=== PATIENT | male | born 1965 | race Hispanic/Latino ===

== ENCOUNTER 2018-02-24 20:17 | Emergency (ER) | payer SELFPAY ==
[2018-02-24 20:24] VITALS: BP 139/99
--- NOTE | 2018-02-24 20:57 | EDM.PDOC ---
ED HPI GENERAL MEDICAL PROBLEM - General Chief Complaint: ENT Problem Stated Complaint: POSSIBLE INFECTION EYES Time Seen by Provider: 02/24/18 20:46 - History of Present Illness INITIAL COMMENTS - FREE TEXT/NARRATIVE: HISTORY AND PHYSICAL: History of present illness: The patient is a 52-year-old male who presents with a one-week history of itchy bilateral eyes left greater than right and I'm adding a night drainage that started yesterday morning. 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 He has no systemic complaints of fever chills nausea vomiting chest pain shortness of breath runny nose or sore throat. He has used [id number] eye lubricant. Patient denies visual blurriness but has pain because of the itchiness of his eyes and he doesn't feel like his vision has been compromised. He has no foreign body sensation in the eyes bilaterally. He does not wear glasses or contact lenses Review of systems: As per history of present illness and below otherwise all systems reviewed and negative. Past medical history: As per history of present illness and as reviewed below otherwise noncontributory. Surgical history: As per history of present illness and as reviewed below otherwise noncontributory. Social history: No reported history of drug or alcohol abuse. Family history: As per history of present illness and as reviewed below otherwise noncontributory. Physical exam: General: Well-developed well-nourished mildly overweight man is nontoxic and vital signs are noted by me HEENT: Atraumatic, normocephalic, pupils reactive, EOMs are intact, sclera are injected bilaterally left greater than light, negative for conjunctival pallor or scleral icterus, mucous membranes moist, throat clear, neck supple, nontender , trachea midline. Conjunctiva bilaterally is erythematous left greater than right Lungs: Clear to auscultation, breath sounds equal bilaterally, chest nontender. Heart: S1S2, regular and rhythm no overt murmurs Abdomen: Soft, nondistended, nontender. N.ABS Genitourinary: Deferred. Rectal: Deferred. Extremities: Atraumatic, negative for cords or calf pain. Neurovascular unremarkable. Neuro: Awake, alert, oriented. Cranial nerves II through XII unremarkable. Cerebellum unremarkable. Motor and sensory unremarkable throughout. Exam nonfocal. Diagnostics: Visual acuity Therapeutics: [] Impression: Bilateral conjunctivitis/left greater than right, rule out environmental allergies Definitive disposition and diagnosis as appropriate pending reevaluation and review of above. - Related Data Allergies Allergy/AdvReac Type Severity Reaction Status Date / Time No Known Allergies Allergy Verified 02/24/18 20:26 Home Meds: Home Meds . [No Known Home Meds] 06/25/14 [History] Past Medical History - Past Health History Medical/Surgical History: Denies Medical/Surgical History HEENT History: Reports: None Cardiovascular History: Reports: None Respiratory History: Reports: None Gastrointestinal History: Reports: None Genitourinary History: Reports: None Musculoskeletal History: Reports: None Neurological History: Reports: None Psychiatric History: Reports: None Endocrine/Metabolic History: Reports: None Hematologic History: Reports: None Immunologic History: Reports: None Oncologic (Cancer) History: Reports: None Dermatologic History: Reports: None - Infectious Disease History Infectious Disease History: Reports: None - Past Surgical History Head Surgeries/Procedures: Reports: None Male Surgical History: Reports: None Social & Family History - Tobacco Use Smoking Status *Q: Never Smoker Second Hand Smoke Exposure: No - Caffeine Use Caffeine Use: Reports: None - Recreational Drug Use Recreational Drug Use: No ED ROS GENERAL - Review of Systems Review Of Systems: ROS reveals no pertinent complaints other than HPI. ED EXAM, GENERAL - Physical Exam Exam: See Below (see dictation) Course - Vital Signs Last Recorded V/S: Last Vital Signs Temp 36.4 C 02/24/18 20:23 Pulse 89 02/24/18 20:23 Resp 20 02/24/18 20:23 BP 139/99 H 02/24/18 20:23 Pulse Ox 94 L 02/24/18 20:23 - Orders/Labs/Meds Orders: Active Orders 24 hr Category Date Time Status Communication Order [RC] STAT Care 02/24/18 20:52 Ordered Departure - Departure Time of Disposition: 20:55 Disposition: Home, Self-Care 01 Condition: Good Clinical Impression: Eye irritation Conjunctivitis Qualifiers: Conjunctivitis type: unspecified Laterality: bilateral Qualified Code(s): H10.9 - Unspecified conjunctivitis - Discharge Information Referrals: PCP,None [Primary Care Provider] - Additional Instructions: The following information is given to patients seen in the emergency department who are being discharged to home. This information is to outline your options for follow-up care. We provide all patients seen in our emergency department with a follow-up referral. The need for follow-up, as well as the timing and circumstances, are variable depending upon the specifics of your emergency department visit. If you don't have a primary care physician on staff, we will provide you with a referral. We always advise you to contact your personal physician following an emergency department visit to inform them of the circumstance of the visit and for follow-up with them and/or the need for any referrals to a consulting specialist. The emergency department will also refer you to a specialist when appropriate. This referral assures that you have the opportunity for followup care with a specialist. All of these measure are taken in an effort to provide you with optimal care, which includes your followup. Under all circumstances we always encourage you to contact your private physician who remains a resource for coordinating your care. When calling for followup care, please make the office aware that this follow-up is from your recent emergency room visit. If for any reason you are refused follow-up, please contact the [facility] emergency department at and ask to speak to the emergency department charge nurse. [facility] Primary care- Internal [place] [id number] Please use eye lubricant as needed when you are working and use the tobramycin drops you have been given in both eyes the next 7 days as directed. Please be gentle with her eyes and cleanse with mild water and did not rub. Start over-the -counter Claritin or Dominga as you're working outdoors and this may be allergy related. These call and follow-up with one of our providers in the clinic or your provider in the clinic in the next few days and return to ER as needed and as discussed - My Orders Last 24 Hours: My Active Orders 02/24/18 20:52 Communication Order [RC] STAT - Assessment/Plan Last 24 Hours: My Active Orders 02/24/18 20:52 Communication Order [RC] STAT
== END 2018-02-24 21:10 | disposition home or self-care (01) ==
LOC: MW.ED 20:17
DX: H10.9 Unspecified conjunctivitis (principal)
CPT/HCPCS: 99283

== ENCOUNTER 2023-01-01 16:53 | Emergency (ER) | payer SELFPAY ==
[2023-01-01] MEDS ORDERED: Diphtheria,Pertussis(Acell),Tetanus Vaccine 0.5 ML Syringe IM ONE (17:02)
[2023-01-01] MEDS ORDERED: Tetracaine HCl/PF 0.5% 4 ML Bottle EYEBOTH ONE (17:02)
[2023-01-01] MEDS ORDERED: Erythromycin Base 0.5% Ophth Oint 1 GM Tube EYEBOTH ONE (18:50)
[2023-01-01 19:20] VITALS: BP 168/109; PULSE 67
== END 2023-01-01 19:20 | disposition home or self-care (01) ==
LOC: MW.ED 16:53
DX: S05.01XA Injury of conjunctiva and corneal abrasion without foreign body, right eye, initial encounter (principal); S05.02XA Injury of conjunctiva and corneal abrasion without foreign body, left eye, initial encounter; Z23 Encounter for immunization; W22.09XA Striking against other stationary object, initial encounter
CPT/HCPCS: 90471; 90715; 99283; A9270; 99282; J3490

== ENCOUNTER 2023-07-20 19:01 | Emergency (ER) | payer SELFPAY ==
[2023-07-20] MEDS ORDERED: traMADol 50 MG Tab PO ONE (20:48)
[2023-07-20 21:03] VITALS: BP 158/98; PULSE 88
== END 2023-07-20 21:48 | disposition home or self-care (01) ==
LOC: MW.ED 19:01
DX: T71.9XXA Asphyxiation due to unspecified cause, initial encounter (principal)
CPT/HCPCS: 72125; 99284; A9270; 99283

== ENCOUNTER 2023-07-31 05:30 | Emergency (ER) | payer SELFPAY ==
[2023-07-31 05:43] LABS: APPEARANCE,URINE CLEAR; BILIRUBIN,URINE NEGATIVE (NEGATIVE); COLOR,URINE YELLOW; GLUCOSE,URINE NEGATIVE (NEGATIVE); KETONES,URINE NEGATIVE (NEGATIVE); LEUKOCYTE ESTERASE,URINE NEGATIVE (NEGATIVE); NITRITE,URINE NEGATIVE (NEGATIVE); OCCULT BLOOD,URINE NEGATIVE (NEGATIVE); PROTEIN,URINE NEGATIVE (NEGATIVE); UROBILINOGEN,URINE 0.2 EU/dL (<2.0)
[2023-07-31 05:46] LABS: BACTERIA,URINE RARE (NEGATIVE); EPITHELIAL CELLS,URINE RARE (NONE-FEW); RBC,URINE 0-1 (0-2/HPF); WBC,URINE 0-1 (0-5/HPF)
[2023-07-31] MEDS ORDERED: Sodium Chloride 0.9% 1,000 ML IV ONE (05:47)
[2023-07-31] MEDS ORDERED: Ketorolac 30 MG/ML SDV IVPUSH ONE (05:47)
[2023-07-31] MEDS ORDERED: Cyclobenzaprine 10 MG Tab PO ONE (05:48)
[2023-07-31 06:23] LABS: BASOPHILS ABSOLUTE AUTO 0.08 K/uL (0.00-0.20); EOSINOPHILS ABSOLUTE AUTO 0.08 K/uL (0.00-0.45); HEMOGLOBIN 16.4 g/dL (14.0-18.0); IMMATURE GRAN ABSOLUTE AUTO 0.02 K/uL (0.00-0.05); IMMATURE GRAN PERCENT AUTO 0.3 % (0.0-0.4); LYMPHOCYTES ABSOLUTE AUTO 2.25 K/uL (1.00-4.80); MEAN CORPUSCULAR HGB CONC 35.7 g/dL (32.0-36.0); MEAN CORPUSCULAR VOLUME 84.2 fL (83.0-99.0); MEAN PLATELET VOLUME 11.7 fL (9.4-12.4); MONOCYTES ABSOLUTE AUTO 0.55 K/uL (0.00-0.80); MONOCYTES PERCENT AUTO 7.1 % (0.0-8.0); NEUTROPHILS ABSOLUTE AUTO 4.78 K/uL (1.80-7.70); NEUTROPHILS PERCENT AUTO 61.6 % (41.0-71.0); PLATELET COUNT,PLT 208 K/uL (150-400); RED BLOOD CELL COUNT 5.46 M/uL (4.52-5.90); WHITE BLOOD CELL COUNT,WBC 7.76 K/uL (3.9-11.3)
[2023-07-31 06:51] LABS: A/G RATIO 0.9 (0.9-1.6); ALBUMIN 3.7 g/dL (3.4-5.0); BILIRUBIN TOTAL 0.4 mg/dL (0.2-1.0); CALCIUM 9.2 mg/dL (8.5-10.1); CARBON DIOXIDE,CO2 27.1 mmol/L (21.0-32.0); CREATININE 0.9 mg/dL (0.8-1.3); EST CRCL DRUG DOSING (CG) 84.67 mL/min; POTASSIUM,K 3.7 mmol/L (3.5-5.1)
[2023-07-31] MEDS ORDERED: Iopamidol 755 MG/ML 500 ML Multipack Bottle IVPUSH STA (08:29)
[2023-07-31 09:36] VITALS: BP 139/86; PULSE 66
== END 2023-07-31 09:36 | disposition home or self-care (01) ==
LOC: MW.ED 05:30
DX: M54.6 Pain in thoracic spine (principal)
CPT/HCPCS: 36415; 74177; 80053; 81001; 83690; 84484; 85025; 85379; 96361; 96374; 99284; A9270; J1885; J7030; Q9967